=== PATIENT | female | born 1990 | race Caucasian/White ===

== ENCOUNTER 2016-08-26 22:31 | Emergency (ER) | payer OTHER ==
[2016-08-26 22:42] VITALS: BP 144/104
[2016-08-26] MEDS ORDERED: Acetaminophen/oxyCODONE 325-5 MG Tab PO ONE (22:59)
--- NOTE | 2016-08-26 23:11 | EDM.PDOC ---
ED HPI GENERAL MEDICAL PROBLEM - General Chief Complaint: Upper Extremity Injury/Pain Stated Complaint: INJURED RIGHT ARM Time Seen by Provider: 08/26/16 22:41 Source of Information: Reports: Patient History Limitations: Reports: No Limitations - History of Present Illness INITIAL COMMENTS - FREE TEXT/NARRATIVE: The patient slipped and fell in the mud and landed on her right upper arm. She denies any other injuries. She has no headache or neck pain. She is holding her shoulder out. She has never injured this arm before. Onset: Today, Sudden Duration: Minutes: Location: Reports: Upper Extremity, Right (Shoulder) Quality: Reports: Sharp Severity: Moderate Improves with: Reports: None Worsens with: Reports: Movement Context: Reports: Activity (She was running and she slipped in the mud) Associated Symptoms: Reports: No Other Symptoms Right Shoulder Pain Score (Numeric/FACES): 6 - Related Data Allergies Allergy/AdvReac Type Severity Reaction Status Date / Time amoxicillin Allergy Rash Verified 08/26/16 22:42 Home Meds: Home Meds . [No Known Home Meds] 08/26/16 [History] Past Medical History - Past Health History Medical/Surgical History: Denies Medical/Surgical History Social & Family History - Family History Family Medical History: Noncontributory - Tobacco Use Smoking Status *Q: Never Smoker - Recreational Drug Use Recreational Drug Use: No Review of Systems - Review of Systems Review Of Systems: See Below Constitutional: Reports: No Symptoms Eyes: Reports: No Symptoms Ears: Reports: No Symptoms Nose: Reports: No Symptoms Mouth/Throat: Reports: No Symptoms Respiratory: Reports: No Symptoms Cardiovascular: Reports: No Symptoms GI/Abdominal: Reports: No Symptoms Genitourinary: Reports: No Symptoms Musculoskeletal: Reports: Shoulder Pain ED EXAM, GENERAL - Physical Exam Exam: See Below Exam Limited By: No Limitations General Appearance: Alert, No Apparent Distress Ears: Normal External Exam Nose: Normal Inspection Head: Atraumatic, Normocephalic Neck: Normal Inspection Respiratory/Chest: No Respiratory Distress, Lungs Clear, Normal Breath Sounds Cardiovascular: Regular Rate, Rhythm, No Edema, No Murmur GI/Abdominal: Soft, Non-Tender, No Organomegaly, No Mass Back Exam: Normal Inspection Extremities: Other (She is holding her right arm in abduction and flexed at the elbow. She has pain to the deltoid region. She has good sensation and pulses.) ED TRAUMA EXTREMITY PROCEDURES - Joint Reduction Site: Shoulder (R) Sedation: Conscious Cedation Pre-Procedure NV Status: Normal Post-Procedure NV Status: Normal Technique: Traction/Counter Traction Number of Attempts: 2 Post-Reduction Imaging: Completely Reduced Joint Reduction Complications: No Course - Vital Signs Last Recorded V/S: Last Vital Signs Temp 98.4 F 08/26/16 22:40 Pulse 75 08/26/16 22:40 Resp 16 08/26/16 22:40 BP 144/104 H 08/26/16 22:40 Pulse Ox 94 L 08/26/16 22:40 - Orders/Labs/Meds Orders: Active Orders 24 hr Category Date Time Status Peripheral IV Care [RC] . DIRECTED Care 08/26/16 23:25 Active Shoulder 1V Rt [CR] Stat Exams 08/27/16 00:23 Ordered Shoulder 1V Rt [CR] Stat Exams 08/27/16 00:55 Ordered Shoulder Comp Rt [CR] Stat Exams 08/26/16 22:58 Ordered Lactated Ringers [Ringers, Lactated] 1,000 ml Med 08/26/16 23:30 Active IV ASDIRECTED Sodium Chloride 0.9% [Saline Flush] Med 08/26/16 23:25 Active 10 ml FLUSH ASDIRECTED PRN Peripheral IV Insertion Adult [OM.PC] Routine Oth 08/26/16 23:25 Ordered Medication Orders Lactated Ringer's (Ringers, Lactated) 1,000 mls @ 150 mls/hr IV ASDIRECTED ADRIENNE Last Admin: 08/27/16 00:09 Dose: 150 mls/hr Sodium Chloride (Saline Flush) 10 ml FLUSH ASDIRECTED PRN PRN Reason: Keep Vein Open Meds: Medications Generic Name Dose Route Start Last Admin Trade Name Freq PRN Reason Stop Dose Admin Lactated Ringer's 1,000 mls @ 150 mls/hr 08/26/16 23:30 08/27/16 00:09 Ringers, Lactated IV 150 mls/hr ASDIRECTED ADRIENNE Administration Sodium Chloride 10 ml 08/26/16 23:25 Saline Flush FLUSH ASDIRECTED PRN Keep Vein Open Discontinued Medications Generic Name Dose Route Start Last Admin Trade Name Freq PRN Reason Stop Dose Admin Fentanyl 100 mcg 08/26/16 23:26 08/27/16 00:23 Sublimaze IVPUSH 08/26/16 23:27 100 mcg ONETIME ONE Administration Midazolam HCl 2 mg 08/26/16 23:26 08/27/16 00:24 Versed 1 Mg/Ml IVPUSH 08/26/16 23:27 2 mg ONETIME ONE Administration Midazolam HCl 2 mg 08/27/16 00:39 08/27/16 00:50 Versed 1 Mg/Ml IVPUSH 08/27/16 00:40 2 mg ONETIME ONE Administration Midazolam HCl Confirm 08/27/16 00:43 Versed 1 Mg/Ml Administered 08/27/16 00:44 Dose 2 mg .ROUTE .STK-MED ONE Oxycodone/Acetaminophen 2 tab 08/26/16 22:59 Percocet 325-5 Mg PO 08/26/16 23:00 ONETIME ONE - Re-Assessments/Exams Free Text/Narrative Re-Assessment/Exam: 08/27/16 00:59 The patient has a dislocated right shoulder. I ordered an IV LR at 100mL/hr, versed 2mg and fentanyl 50mcg IV. I attempted to reduce her shoulder and it felt good but on x-ray it did not look right. I sedated her with more fentanyl 50mcg IV and versed 2mg IV and I was able to fully reduce her shoulder. I will put her in a sling and have her follow up with Dr Mello. Departure - Departure Time of Disposition: 01:05 Disposition: Home, Self-Care 01 Condition: Good Clinical Impression: Dislocation of right shoulder joint Qualifiers: Encounter type: initial encounter Qualified Code(s): S43.004A - Unspecified dislocation of right shoulder joint, initial encounter - Discharge Information Referrals: Moy Mello MD [Physician] - 1 Week Forms: ED Department Discharge Additional Instructions: Ice your shoulder for 15 minutes every other hour while awake for 2 days. Wear the sling for comfort. Take motrin or aleve for pain. You can also take some hydrocodone as needed for pain. Follow up with Dr Mello this week. - My Orders Last 24 Hours: My Active Orders 08/26/16 22:58 Shoulder Comp Rt [CR] Stat 08/26/16 23:25 Peripheral IV Care [RC] . DIRECTED Sodium Chloride 0.9% [Saline Flush] 10 ml FLUSH ASDIRECTED PRN Peripheral IV Insertion Adult [OM.PC] Routine 08/26/16 23:30 Lactated Ringers [Ringers, Lactated] 1,000 ml IV ASDIRECTED 08/27/16 00:23 Shoulder 1V Rt [CR] Stat 08/27/16 00:55 Shoulder 1V Rt [CR] Stat - Assessment/Plan Last 24 Hours: My Active Orders 08/26/16 22:58 Shoulder Comp Rt [CR] Stat 08/26/16 23:25 Peripheral IV Care [RC] . DIRECTED Sodium Chloride 0.9% [Saline Flush] 10 ml FLUSH ASDIRECTED PRN Peripheral IV Insertion Adult [OM.PC] Routine 08/26/16 23:30 Lactated Ringers [Ringers, Lactated] 1,000 ml IV ASDIRECTED 08/27/16 00:23 Shoulder 1V Rt [CR] Stat 08/27/16 00:55 Shoulder 1V Rt [CR] Stat
[2016-08-26] MEDS ORDERED: Sodium Chloride 0.9% 10 ML Syringe FLUSH PRN (23:25)
[2016-08-26] MEDS ORDERED: fentaNYL 100 MCG/2 ML SDV IVPUSH ONE (23:26)
[2016-08-26] MEDS ORDERED: Midazolam 1 MG/ML 2 ML SDV IVPUSH ONE (23:26)
[2016-08-26] MEDS ORDERED: Lactated Ringers 1,000 ML IV SCH (23:30)
[2016-08-27] MEDS ORDERED: Midazolam 1 MG/ML 2 ML SDV IVPUSH ONE (00:39)
[2016-08-27] MEDS ORDERED: Midazolam 1 MG/ML 2 ML SDV ONE (00:43)
--- NOTE | 2016-08-27 09:50 | CR ---
Right shoulder: Three views of the right shoulder were obtained. Comparison: No previous study. Anterior subcoracoid dislocation is seen. No discrete fracture or other bony abnormality is identified. Impression: 1. Right shoulder dislocation. Diagnostic code #5
--- NOTE | 2016-08-27 09:50 | CR ---
Right shoulder: Portable Y scapular view was obtained of the right shoulder. Comparison: Study compared to previous exams performed earlier (12:30 AM and 11:10 PM) Glenohumeral alignment appears normal. No abnormality is seen on the Y scapular view. Impression: 1. No abnormality is identified on right shoulder study. Diagnostic code #1
--- NOTE | 2016-08-27 09:50 | CR ---
Right shoulder: Single portable view of the right shoulder was obtained. Comparison: Previous right shoulder study performed on the same day (11:10 PM). Previous dislocation has been reduced. No abnormality is seen on this one view study. Impression: 1. Previous dislocation is no longer seen. Diagnostic code #1
== END 2016-08-27 01:30 | disposition home or self-care (01) ==
LOC: JD.ED 22:31
DX: S43.014A Anterior dislocation of right humerus, initial encounter (principal); Z88.1 Allergy status to other antibiotic agents; W01.0XXA Fall on same level from slipping, tripping and stumbling without subsequent striking against object, initial encounter
CPT/HCPCS: 23650; 73020; 73030; 96361; 96374; 96375; 99284; J2250; J3010; J7120

== ENCOUNTER 2017-06-05 08:10 | Day surgery (SDC) | payer SELFPAY ==
[~2017-06-05 08:10] MED LIST: Lactated Ringers 1,000 ML IV SCH; Lidocaine 1%/Sod Bicarbonate in NS 8.4% 1 ML Syringe IDERM PRN; Sodium Chloride 0.9% 10 ML Syringe FLUSH PRN
--- NOTE | 2017-06-05 08:41 | PCM.PREANE ---
Preanesthetic Assessment - Procedure Proposed Procedure: EGD and colonoscopy - Anesthesia/Transfusion/Family Hx Anesthesia History: No Prior Anesthesia (except remembers procedure during ER shoulder manipulation) Family History of Anesthesia Reaction: No Transfusion History: No Prior Transfusion(s) Intubation History: Unknown - Review of Systems General: No Symptoms Pulmonary: Other (excercise induced asthma ) Cardiovascular: No Symptoms Gastrointestinal: Abdominal Pain Neurological: No Symptoms Other: Reports: None - Physical Assessment NPO Status Date: 06/04/17 NPO Status Time: 20:00 Pulse: 83 O2 Sat by Pulse Oximetry: 98 Respiratory Rate: 20 Blood Pressure: 136/85 Temperature: 36.6 C Height: 1.78 m Weight: 116.12 kg ASA Class: 2 Mental Status: Alert & Oriented x3 Airway Class: Mallampati = 1 Dentition: Reports: Normal Dentition Thyro-Mental Finger Breadths: 3 Mouth Opening Finger Breadths: 5 ROM/Head Extension: Full Lungs: Clear to Auscultation, Normal Respiratory Effort Cardiovascular: Regular Rate, Regular Rhythm - Lab Values: Laboratory Last Values Urine HCG, Qual Negative (NEGATIVE) 06/05/17 08:15 - Allergies Allergies/Adverse Reactions: Allergies Allergy/AdvReac Type Severity Reaction Status Date / Time amoxicillin Allergy Rash Verified 06/04/17 11:45 - Blood Blood Available: No - Anesthesia Plan Pre-Op Medication Ordered: None - Acknowledgements Anesthesia Type Planned: MAC Pt an Appropriate Candidate for the Planned Anesthesia: Yes Alternatives and Risks of Anesthesia Discussed w Pt/Guardian: Yes Pt/Guardian Understands and Agrees with Anesthesia Plan: Yes PreAnesthesia Questionnaire - Past Health History Medical/Surgical History: Denies Medical/Surgical History HEENT History: Reports: Allergic Rhinitis Cardiovascular History: Reports: None Respiratory History: Reports: None Gastrointestinal History: Reports: Chronic Diarrhea, Other (See Below) Other Gastrointestinal History: rectal bleeding Genitourinary History: Reports: None PROCESS ASSISTANT History: Reports: None Musculoskeletal History: Reports: Other (See Below) Other Musculoskeletal History: right shoulder dislocation Neurological History: Reports: None Psychiatric History: Reports: None Endocrine/Metabolic History: Reports: Obesity/BMI 30+ Hematologic History: Reports: None Immunologic History: Reports: None Oncologic (Cancer) History: Reports: None Dermatologic History: Reports: None - Past Surgical History Head Surgeries/Procedures: Reports: None HEENT Surgical History: Reports: LASIK Cardiovascular Surgical History: Reports: None Respiratory Surgical History: Reports: None GI Surgical History: Reports: None Female Surgical History: Reports: None Male Surgical History: Reports: None Endocrine Surgical History: Reports: None Neurological Surgical History: Reports: None Musculoskeletal Surgical History: Reports: None Oncologic Surgical History: Reports: None Dermatological Surgical History: Reports: None - SUBSTANCE USE Smoking Status *Q: Never Smoker Recreational Drug Use History: No - HOME MEDS Home Medications: Home Meds . [No Known Home Meds] 08/26/16 [History] - CURRENT (IN HOUSE) MEDS Current Meds: Current Medications Lactated Ringer's (Ringers, Lactated) 1,000 mls @ 125 mls/hr IV ASDIRECTED ADRIENNE Stop: 06/05/17 23:00 Lidocaine/Sodium Bicarbonate (Buffered Lidocaine 1% In Ns 8.4%) 0.25 ml IDERM ONETIME PRN PRN Reason: Prior to IV Start Stop: 06/05/17 18:00 Sodium Chloride (Saline Flush) 10 ml FLUSH ASDIRECTED PRN PRN Reason: Keep Vein Open Stop: 06/05/17 18:00
[2017-06-05] MEDS ORDERED: Propofol 200 MG/20 ML SDV ONE (08:46)
[2017-06-05] MEDS ORDERED: Midazolam 1 MG/ML 2 ML SDV ONE (08:46)
[2017-06-05] MEDS ORDERED: Lidocaine 1% 4 ML ONE (08:49)
--- NOTE | 2017-06-05 09:16 | PCM.OPNOTE ---
- General Post-Op/Procedure Note Date of Surgery/Procedure: 06/05/17 Operative Procedure(s): 1. Esophagogastroduodenoscopy with antral and gastric biopsies. 2. Colonoscopy with hot snare polypectomy Findings: 1. Mild antritis 2. Pedunculated sigmoid polyp at 20 cm 3. Anal tags Pre Op Diagnosis: 1. Intermittent epigastric pain. 2. Rectal bleeding Post-Op Diagnosis: 1. Mild antritis. 2. Multiple anal tags. 3. Pedunculated sigmoid polyp Anesthesia Technique: MAC, Moderate Sedation Primary Surgeon: Beto Byrnes Pathology: 1. Antral biopsy 2. Sigmoid polyp 3. Gastric body biopsy EBL in mLs: 0 Complications: None Condition: Good Free Text/Narrative:: After adequate IV sedation and analgesia was obtained with monitoring the patient was placed on her left side. Through a bite block a lubricated upper endoscope was inserted into the esophagus and advanced to the stomach without difficulty. Additional air was given here followed by passage of the scope through the pylorus into the second part of the duodenum. The second and first parts were grossly normal. The antrum had mild spotty antritis. There were no ulcers or erosions. Biopsy was taken of this area for histologic evaluation. The retroflexed view was unremarkable with no hiatal hernia. The fundic and cardiac regions were normal. The body of the stomach was normal as well. A random biopsy was taken the body of the stomach for review. The GE junction was normal. The body esophagus was unremarkable. On extubation the vocal cords were briefly visualized and were grossly normal. Perianal inspection and digital rectal examination were performed next and were unremarkable. A lubricated colonoscope was inserted into the rectum and advanced to the cecum without difficulty. The bowel preparation was excellent. The cecum ascending colon transverse and descending colons were endoscopically normal with no mass lesions or inflammatory changes seen. The distal sigmoid at 20 cm had a pedunculated polyp about 8 mm in diameter which was removed with hot snare. The specimen was retrieved and the polypectomy site was hemostatic. The rectum in both views was remarkable only for anal tags. Air was removed as I finished the procedure. Ems Director photographs were taken of both scopes for the patient and for the medical record.
--- NOTE | 2017-06-05 09:22 | PCM48HPAN ---
Post Anesthesia Note - EVALUATION WITHIN 48HRS OF ANESTHETIC Vital Signs in Normal Range: Yes Patient Participated in Evaluation: Yes Respiratory Function Stable: Yes Airway Patent: Yes Cardiovascular Function Stable: Yes Hydration Status Stable: Yes Pain Control Satisfactory: Yes Nausea and Vomiting Control Satisfactory: Yes Mental Status Recovered: Yes Pulse Rate: 83 SaO2: 97 Resp Rate: 20 Temperature: 36.6 C Blood Pressure: 136/85
[2017-06-05 11:00] VITALS: BP 141/88
== END 2017-06-05 09:57 | disposition home or self-care (01) ==
LOC: JD.SDS 08:10
PROVIDERS: ATTEND Surgery
DX: K29.50 Unspecified chronic gastritis without bleeding (principal); D12.5 Benign neoplasm of sigmoid colon; K20.8 Other esophagitis; K64.4 Residual hemorrhoidal skin tags; E66.9 Obesity, unspecified; Z68.38 Body mass index [BMI] 38.0-38.9, adult; K62.5 Hemorrhage of anus and rectum; Z88.0 Allergy status to penicillin
CPT/HCPCS: 43239; 45385; 81025; J2250; J7120; 00813; 88304; 88305; J2001; J2704